=== PATIENT | female | born 1935 ===

== ENCOUNTER 2021-04-27 09:19 | Outpatient (REF) | payer MEDICARE, OTHER, SELFPAY ==
--- NOTE | 2021-04-27 15:16 | MHC.AU.AHA ---
Adult Audiological Evaluation Date of Visit: 04/27/21 Reason for Appointment: Audiological re-evaluation to monitor the status of Mrs. Loza's hearing loss. She has a known bilateral sensorineural hearing loss and uses hearing aids binaurally. She notes that she recently lost the hearing aids and is interested in getting a new pair. She notes that she has been struggling to hear without the hearing aids. She denies any changes to her medical history since her last visit. [place] [facility] [place] Mild sloping to severe sensorineural hearing loss bilaterally. Ear History: Family History of Hearing Loss?: Yes Bothersome Tinnitus/Ringing/Noises in Ears: Both Ears Medical History: Medical History: High Blood Pressure, knee replacement Medication List: Atenolol 100 mg, Spironolactone 25 mg, Hydrochlorothiazide 25 mg Hearing Instrument History- Right Ear: Grade Checker: [employer]ics Model: AudSwagbucks M70-13T - LOST Serial Number: [id number] Battery Size: 13 Repair Warranty: 02/13/2022 Loss and Damage Warranty: USED Dispensed By: [facility] Date of Fittin12/05/2018 Hearing Instrument History- Left Ear: Grade Checker: [employer] Model: Audeo M70-13T - LOST Serial Number: [id number] Battery Size: 13 Warranty: 02/13/2022 Loss and Damage Warranty: USED Dispensed By: [facility] Date of Fittin12/05/2018 Otoscopy: Right Ear: Unremarkable Left Ear: Unremarkable Tympanometry: Tympanometry performed due to: To assess integrity of the middle ear system Right Ear: Normal Middle Ear System (Type A) Left Ear: Normal Middle Ear System (Type A) Hearing Evaluation: Transducer(s) Used: Supra-Aural Earphones, Bone Conduction Method: Conventional Audiometry Stimuli Used: Pure Tones Right Ear: Description of Hearing: Mild sloping to moderately severe sensorineural hearing from 250-8000 Hz. Left Ear: Description of Hearing: Mild sloping to severe sensorineural hearing loss bilaterally from 250-8000 Hz. Speech Recognition Threshold (SRT): Method Used: Monitored Live Voice Stimuli Used: Spondee Words Right Ear: 30 dBHL Left Ear: 35 dBHL Word Discrimination: Method: Recorded Lists Word Lists Used: NU-6 Right Ear: 76% at 75 dBHL, 88% at 80 dBHL Left Ear: 96% at 80 dBHL Comparison: Compared to the most recent evaluation: Hearing is stable. Recommendations: Audiological re-evaluation in one year. Trial with amplification is recommended. Medical clearance from a physician is required before fitting. Discussed hearing aid options. New hearing aids are being ordered. Diagnosis: Primary Diagnosis: H90.3 Bilateral Sensorineural Hearing Loss Services Performed: Comprehensive Audiological Evaluation (CPT 94430) Signature: Provider: Jordon Dominguez, CCC-A
--- NOTE | 2021-04-27 15:17 | MHC.AU.MED ---
Medical Clearance for Hearing Instrumentation Date: 04/29/21 Patient Name: Esther Loza Date of : 1935 Referring Provider: Beth Mtz MD We have seen your patient on 04/29/21 and have determined that they are a candidate for amplification (See accompanying report). Specifically, they would benefit from: Hearing aid use in the right ear Hearing aid use in the left ear Hearing aid use in both ears There is a statute that addresses Medical Evaluation Requirements prior to fitting a patient with a hearing aid. According to [place] statute 265 CMR:6.03(1), (a) General. Except as provided in 265 CMR 6.03(1)(b), a profiling machine setup operator shall not sell a hearing aid unless the prospective user has presented to the profiling machine setup operator a written statement signed by a licensed physician that states that the patient's hearing loss has been medically evaluated and the patient may be considered a candidate for a hearing aid. The medical evaluation must have taken place within the preceding six months. Please note: Due to the [place] Statute referenced above, we cannot accept a signature other than that of a licensed physician. CAR CARDER and PA signatures cannot be accepted. I am in agreement with the above recommendation. There is no medical contraindication for hearing instrumentation. Physician Signature Date Physician Name (Printed)
== END 2021-04-27 09:20 | disposition home or self-care (01) ==
LOC: HO.SH 09:19
PROVIDERS: Visit Provider Pediatrics
DX: H90.3 Sensorineural hearing loss, bilateral (principal)
CPT/HCPCS: 92557

== ENCOUNTER 2021-04-27 10:29 | Outpatient (REF) | payer SELFPAY ==
--- NOTE | 2021-04-27 15:23 | MHC.AU.HAS ---
Hearing Aid Evaluation Date of Visit: 04/27/21 Historical Information: Description of Hearing: Mild sloping to moderately-severe/severe sensorineural hearing loss bilaterally. Current personal amplification information, if applicable: Phonak Audeo M70-13T, both aids are lost Summary: Ms. Loza recently lost both hearing aids, and the L&D warranty has already been used. She would like to purchase a new pair of hearing aids. She would like to stay with a similar style and technology level. Rechargeable hearing aids are recommended because they have to be put back in the fret saw operator and it can be easier to keep track of them that way. She was agreeable to this suggestion. Hearing Aid Prescription: Based on the individual?s shared listening needs, communication environments, dexterity, desire for connectivity, and personal preferences, the following prescription for amplification has been made: Right ear: Solar Sales Advisor: Phonak Model: Audeo P70-R Battery Size: Rechargeable Color: P1 - [place] [employer]: Size 1 M Type of Dome: Small power domes Left ear: Left ear prescription to be same as Right Hearing Aid above: Solar Sales Advisor: Phonak Model: Audeo P70-R Battery Size: Rechargeable Color: P1 - Sand beige [employer]: Size 1 M Type of Dome: Small power dome Plan of Care: Medical Clearance to be requested from PCP/ENT. Paid $350 deposit today. Mrs. Loza has [employer] which often has a hearing aid benefit. Recommended she check with her insurance to determine if she has a hearing aid benefit. Primary Diagnosis: H90.3 Bilateral Sensorineural Hearing Loss Signature: Provider: Jordon Dominguez, [facility]
== END 2021-04-27 10:30 | disposition home or self-care (01) ==
LOC: HO.HAP 10:29
PROVIDERS: Visit Provider Pediatrics
DX: Z46.1 Encounter for fitting and adjustment of hearing aid (principal); H90.5 Unspecified sensorineural hearing loss
CPT/HCPCS: 92591

== ENCOUNTER 2021-05-05 15:13 | Outpatient (REF) | payer SELFPAY | END 2021-05-05 15:14 | disposition home or self-care (01) | LOC: HO.HAP 15:13 | PROVIDERS: Visit Provider Pediatrics | DX: H90.3 Sensorineural hearing loss, bilateral (principal) | CPT/HCPCS: V5261; V5299 ==